=== PATIENT | female | born 1970 | race Caucasian/White ===

== ENCOUNTER 2018-11-04 12:25 | Emergency (ER) | payer OTHER ==
[~2018-11-04] VITALS: Ht 162.6 cm; Wt 89.8 kg
[~2018-11-04 12:25] MED LIST: CABERGOLINE0.5 MG
[2018-11-04] MEDS ORDERED: SYNTHROID50 MCG (12:54)
== END 2018-11-04 18:54 | disposition home or self-care (01) ==
LOC: ER 12:25
DX: K58.1 Irritable bowel syndrome with constipation (principal)

== ENCOUNTER 2019-11-20 07:55 | Emergency (ER) | payer OTHER ==
[~2019-11-20] VITALS: Ht 152.4 cm; Wt 89.8 kg
[~2019-11-20 07:55] MED LIST changes: +SYNTHROID50 MCG
== END 2019-11-20 09:10 | disposition home or self-care (01) ==
LOC: ER 07:55
DX: J11.1 Influenza due to unidentified influenza virus with other respiratory manifestations (principal)

== ENCOUNTER 2022-12-12 20:20 | Emergency (ER) | payer OTHER ==
[~2022-12-12] VITALS: Ht 162.6 cm; Wt 83.9 kg
[2022-12-12] MEDS ORDERED: ARMOUR THYROID30 M1 PO (20:29)
== END 2022-12-12 21:42 | disposition home or self-care (01) ==
LOC: ER 20:20
DX: R21 Rash and other nonspecific skin eruption (principal)